=== PATIENT | female | born 1995 | race Caucasian/White ===

== ENCOUNTER 2018-02-10 01:40 | Emergency (ER) | payer OTHER ==
[~2018-02-10] VITALS: Ht 162.6 cm; Wt 84.3 kg
[2018-02-10 01:47] VITALS: TEMP 36.8; Ht 162.6 cm; Wt 84.3 kg
[2018-02-10 02:19] VITALS: BP 122/78; PULSE 87; O2SAT 100
--- NOTE | 2018-02-10 07:21 | EMERGENCY ROOM VISIT NOTE ---
History First contact with patient: 01:51 Chief Complaint: FOREIGNBODY ANY BODY PART Stated Complaint: RING STUCK ON FINGER History of Present Illness The patient is a 22 year old female who presents to the Emergency Room with complaints of increasing pain to her right ring finger. The patient states that it began to bother her 3 or 4 hours ago, and the pain has slowly worsened. She does not have injury or trauma to the finger, but does have a ring on the finger that she is unable to remove. As the pain has increased she is concerned that she is losing blood flow to the finger. She does not have injury or trauma. She rates her pain an 8/10. Review of Systems More than 6 systems were reviewed and otherwise negative with the exception of history of present illness. Past Medical/Surgical History No chronic medical disease Family History No pertinent family history Social History Smoking Status: Never Smoker Physical Exam Vital Signs Date Time Temp Pulse Resp B/P (MAP) Pulse Ox O2 Delivery O2 Flow Rate FiO2 02/10/18 02:19 87 16 122/78 100 Room Air 02/10/18 01:47 36.8 85 20 128/86 96 Room Air Physical Exam VITALS: Vitals are noted on the nurse's note and reviewed by myself. Vital signs stable. GENERAL: Well-developed, well-nourished, white female, who is in no acute distress and resting comfortably. Patient is cooperative with the examination. HEAD: Normocephalic atraumatic. HEART: Regular rate and rhythm without murmurs gallops or rubs. LUNGS: Clear to auscultation bilaterally without wheezes, rales or rhonchi. No retractions or accessory muscle use. MUSCULOSKELETAL: There is mild swelling to the right fourth finger. Neurovascular status appears intact distally. The patient is able to flex and extend against resistance. Along the proximal aspect of the finger is a metal ring. The ring is not easily removed with gentle manipulation, and there is concern this may cause a tourniquet to the finger. Medical Decision & Procedures ED Course Physical exam and history were performed. Nursing notes, EMR, and Medication List were personally reviewed. Patient appears to have a ring that is immobile on her right fourth finger. She is having increasing pain in this finger, and the concern is the ring may be causing a tourniquet. Utilizing umbilical tape I attempted to remove the ring initially. This was grossly unsuccessful, and ultimately the ring was cut using a ring removal blade. The patient tolerated this well without complication. The ring was returned to the patient. Repeat finger exam does not show laceration or other injury. The patient had immediate improvement of her pain, and continued with full strength and range of motion. The patient was instructed to use [id number] analgesics for pain control. She was otherwise invited back to the ER with any new, worsening, or concerning symptoms. The chart was completed utilizing [employer] Speech Voice Recognition Software. Grammatical errors, random word insertions, pronoun errors, and incomplete sentences are an occasional consequence of this system due to software limitations, ambient noise, and hardware issues. Any formal questions or concerns about the content, text, or information contained within the body of this dictation should be directly addressed to the provider for clarification. . Medical Decision Differential diagnosis includes, but is not limited to: Sprain, strain, fracture , dislocation, subluxation, contusion, tourniquet, and others Impression Primary Impression: Foreign body of finger Departure Information Dispostion Home / Self-Care Condition GOOD Forms HOME CARE DOCUMENTATION FORM, IMPORTANT VISIT INFORMATION Patient Instructions [facility] Additional Instructions You were seen and evaluated today on an emergency basis only. This is not a substitute for, or an effort to provide, complete comprehensive medical care. It is not possible to recognize and treat all injuries or illnesses in a single emergency department visit. For this reason it is recommended that you followup with your primary care physician with any ongoing or persisting symptoms. For baseline pain relief you may alternate ibuprofen and acetaminophen every 4 hours for pain control. Take 600 mg ibuprofen (Advil) and then 4 hours later take 1000 mg acetaminophen (Tylenol). Do not take more than 3000 mg acetaminophen in a single day. You are welcome to return to the emergency department anytime with new, worsening, or concerning symptoms.
== END 2018-02-10 02:27 | disposition home or self-care (01) ==
LOC: C.EDB 01:42 → C.EDA 02:27
DX: S60.454A Superficial foreign body of right ring finger, initial encounter (principal); X58.XXXA Exposure to other specified factors, initial encounter